=== PATIENT | male | born 2000 | race Caucasian/White ===

== ENCOUNTER 2018-09-27 04:44 | Emergency (ER) | payer BC ==
[2018-09-27] MEDS ORDERED: predniSONE 20 MG Tab PO ONE (05:06)
[2018-09-27] MEDS ORDERED: Loratadine 10 MG Tab PO ONE (05:07)
--- NOTE | 2018-09-27 05:13 | EDM.PDOC ---
ED HPI GENERAL MEDICAL PROBLEM - General Chief Complaint: Skin Complaint Stated Complaint: RASH AT [facility] ALL DAY Time Seen by Provider: 09/27/18 04:59 Source of Information: Reports: Patient, RN Notes Reviewed - History of Present Illness INITIAL COMMENTS - FREE TEXT/NARRATIVE: 18-year-old male comes in with generalized rash. Are did yesterday afternoon about 16-18 hours ago. He has been on Augmentin antibiotic for about the past week for "tonsillitis. He states he did have a fairly severe sore throat. That has proven progressively getting better and is about back to normal. He did not have severe cough or congestion with that. No history of prior allergy to penicillin or other antibiotics. Also he was swimming for about a half hour yesterday afternoon "at the [facility]". The rash did come on shortly after that. He has had no facial swelling with this and no difficulty breathing. hands and feet Pain Score (Numeric/FACES): 8 - Related Data Allergies Allergy/AdvReac Type Severity Reaction Status Date / Time No Known Allergies Allergy Verified 09/27/18 04:53 Home Meds: Home Meds Amoxicillin 875 mg PO BID 09/27/18 [History] predniSONE [Prednisone] 50 mg PO DAILY #5 tablet 09/27/18 [Rx] Past Medical History - Past Health History Medical/Surgical History: Denies Medical/Surgical History Social & Family History - Tobacco Use Smoking Status *Q: Current Some Day Smoker Years of Tobacco use: 0 Packs/Tins Daily: 0 - Caffeine Use Caffeine Use: Reports: Coffee - Recreational Drug Use Recreational Drug Use: No ED ROS GENERAL - Review of Systems Review Of Systems: See Below Constitutional: Denies: Fever, Chills HEENT: Reports: Throat Pain (One week ago,:) Respiratory: Denies: Shortness of Breath, Wheezing Cardiovascular: Denies: Chest Pain GI/Abdominal: Denies: Abdominal Pain, Vomiting Skin: Reports: Rash Neurological: Reports: No Symptoms ED EXAM, SKIN/RASH Exam: See Below General Appearance: Alert, Mild Distress Eye Exam: Bilateral Eye: PERRL Throat/Mouth: Normal Inspection, Inflammation (Pharynx is very mildly inflamed, no swelling or exudate at this time) Head: No: Facial Swelling Neck: Supple. No: Lymphadenopathy (L), Lymphadenopathy (R) Respiratory/Chest: No Respiratory Distress, Lungs Clear Cardiovascular: Regular Rate, Rhythm Extremities: Normal Inspection Neurological: Alert, Oriented, No Motor/Sensory Deficits Skin: Warm, Dry, Rash (Generalized macular rash that involves face neck trunk upper and lower extremities, no hives present) Course - Vital Signs Last Recorded V/S: Last Vital Signs Temp 98.4 F 09/27/18 04:49 Pulse 94 09/27/18 04:49 Resp 18 09/27/18 04:49 BP 141/71 H 09/27/18 04:49 Pulse Ox 98 09/27/18 04:49 - Orders/Labs/Meds Meds: Medications Discontinued Medications Generic Name Dose Route Start Last Admin Trade Name Luis PRN Reason Stop Dose Admin Loratadine 10 mg 09/27/18 05:07 09/27/18 05:10 Claritin PO 09/27/18 05:08 10 mg ONETIME ONE Administration Prednisone 60 mg 09/27/18 05:06 09/27/18 05:10 Prednisone PO 09/27/18 05:07 60 mg ONETIME ONE Administration Departure - Departure Time of Disposition: 05:14 Disposition: Home, Self-Care 01 Condition: Fair Clinical Impression: Allergic reaction caused by a drug Qualifiers: Encounter type: initial encounter Qualified Code(s): T78.40XA - Allergy, unspecified, initial encounter - Discharge Information Prescriptions: predniSONE [Prednisone] 50 mg PO DAILY #5 tablet Referrals: PCP,None [Primary Care Provider] - Forms: ED Department Discharge Additional Instructions: Stop the amoxicillin, this rash is strongly compatible with penicillin allergy. Prednisone 50 mg daily for the next 5 days, you were given 60 mg orally while here in the ED and also 10 mg of Claritin. Continue the Benadryl 50 mg about every 8 hours today and tomorrow until itchiness starts improving. You may also take Claritin in addition 10 mg daily until rash resolves. It will likely take about 4-5 days for this to fade out. Return to ED if you do develop any breathing difficulty or symptoms otherwise worsening in any way. Prescription for prednisone has been sent electronically to [facility] located at the [employer]
== END 2018-09-27 05:25 | disposition home or self-care (01) ==
LOC: JD.ED 04:44
DX: L27.0 Generalized skin eruption due to drugs and medicaments taken internally (principal); T36.0X5A Adverse effect of penicillins, initial encounter; J03.90 Acute tonsillitis, unspecified; F17.210 Nicotine dependence, cigarettes, uncomplicated
CPT/HCPCS: 99282; A9270; 99283